=== PATIENT | female | born 1950 | race Caucasian/White ===

== ENCOUNTER 2021-12-22 13:34 | Outpatient (CLI) | payer MEDICARE, BC, SELFPAY ==
--- NOTE | 2021-12-22 14:00 | CRLHL7_ITS ---
For Patients: As a result of the Century Cures Act, medical imaging exams and procedure reports are released immediately into your electronic medical record. You may view this report before your referring provider. If you have questions, please contact your health care provider. BILATERAL SCREENING MAMMOGRAM WITH COMPUTER-AIDED DETECTION AND TOMOSYNTHESIS CLINICAL HISTORY: Screening mammogram. TECHNIQUE: BILATERAL screening mammogram with tomosynthesis. Computer-aided detection was utilized. COMPARISON FILM: Mammograms 12/18/2020. BREAST COMPOSITION: The breasts are heterogeneously dense, which may obscure small masses. FINDINGS: No mass, suspicious microcalcifications or other evidence of malignancy. LEFT BREAST: Focal asymmetry in the slightly outer lower posterior LEFT breast at the approximately 4-5 o???clock position 10 cm from the nipple. No suspicious microcalcifications or architectural distortion. IMPRESSION: Focal asymmetry in the posterior LEFT breast at the approximately 4-5 o???clock position 10 cm from the nipple. RECOMMENDATION: Recommend Spot compression CC, LEFT ML with tomosynthesis and ultrasound for further evaluation. ASSESSMENT: BI-RADS Category 0: Incomplete: Need Additional Imaging Evaluation and/or Prior Mammograms for Comparison [facility] will contact the patient for follow-up. A lay language report of this examination will be provided to the patient. Mike Zneg M.D. Diagnostic/Musculoskeletal Radiologist [email or web address] PT/Dictated by: Mike Zeng MD @ 12/23/2021 10:54:00 AM (Electronically Signed)
== END 2021-12-22 13:35 | disposition home or self-care (01) ==
LOC: MAMMO 13:37
PROVIDERS: PCP Physician Assistant Medical; Visit Provider Physician Assistant Medical
DX: Z12.31 Encounter for screening mammogram for malignant neoplasm of breast (principal); R92.2 Inconclusive mammogram
CPT/HCPCS: 77063; 77067

== ENCOUNTER 2021-12-30 09:27 | Outpatient (CLI) | payer MEDICARE, BC, SELFPAY ==
--- NOTE | 2021-12-30 09:45 | CRLHL7_ITS ---
For Patients: As a result of the Cures Act, medical imaging exams and procedure reports are released immediately into your electronic medical record. You may view this report before your referring provider. If you have questions, please contact your health care provider. LEFT BREAST DIAGNOSTIC MAMMOGRAM WITH COMPUTER-AIDED DETECTION AND TOMOSYNTHESIS LEFT BREAST ULTRASOUND CLINICAL HISTORY: LEFT breast mass/asymmetry. COMPARISON: 12/22/2021, 12/18/2020. TECHNIQUE: Digital LEFT mammogram in 2 projections. Computer-aided detection and tomosynthesis were used. Real-time ultrasound imaging of LEFT breast with imaging documentation. Scanning was performed by both the technologist and the radiologist. BREAST COMPOSITION: There are scattered areas of fibroglandular density FINDINGS: 3D spot-compression CC and 3D true lateral LEFT breast mammograms submitted. Persistent nodular density with irregular margins deep within the LEFT breast at 6 o`clock. Targeted LEFT breast ultrasound performed. At 6 o`clock 10 cm from the nipple there is an irregular hypoechoic nodule measuring 9 x 4 x 6 millimeters. IMPRESSION: Suspicious lesion LEFT breast 6 o`clock 10 cm from the nipple measuring 9 millimeters. RECOMMENDATIONS: Ultrasound-guided core needle biopsy recommended. BI-RADS Category 4: Suspicious Results and recommendations discussed with the patient. Dictated by Lopez Ambrocio MD @ 12/30/2021 11:10:45 AM/josue LISA/Dictated by: Lopez Ambrocio MD @ 12/30/2021 11:10:00 AM (Electronically Signed)
--- NOTE | 2021-12-30 10:15 | CRLHL7_ITS ---
For Patients: As a result of the Century Cures Act, medical imaging exams and procedure reports are released immediately into your electronic medical record. You may view this report before your referring provider. If you have questions, please contact your health care provider. PLEASE SEE LEFT DIAGNOSTIC MAMMOGRAM OF SAME DAY. LISA/Dictated by: Lopez Ambrocio MD @ 12/30/2021 11:10:00 AM (Electronically Signed)
== END 2021-12-30 09:28 | disposition home or self-care (01) ==
LOC: MAMMO 09:30
PROVIDERS: PCP Physician Assistant Medical; Visit Provider Physician Assistant Medical
DX: N63.20 Unspecified lump in the left breast, unspecified quadrant (principal); R92.8 Other abnormal and inconclusive findings on diagnostic imaging of breast
CPT/HCPCS: 76642; 77065; G0279

== ENCOUNTER 2022-01-04 08:28 | Outpatient (CLI) | payer MEDICARE, BC, SELFPAY ==
--- NOTE | 2022-01-04 09:15 | CRLHL7_ITS ---
For Patients: As a result of the Century Cures Act, medical imaging exams and procedure reports are released immediately into your electronic medical record. You may view this report before your referring provider. If you have questions, please contact your health care provider. ULTRASOUND-GUIDED LEFT BREAST BIOPSY AND POST-BIOPSY DIGITAL MAMMOGRAM FOR BIOPSY MARKER PLACEMENT, 01/04/2022 CLINICAL HISTORY: Indeterminate lesion. COMPARISON STUDIES: 12/30/2021. TECHNIQUE: Real-time ultrasound with image documentation was used for targeting the breast lesion. Core biopsy specimens were obtained using an automated gun with a 18-gauge biopsy needle. Post-biopsy CC and ML digital mammograms were obtained to document position of the biopsy marker. CONSENT and TIME OUT: The procedure, risks, and alternatives were explained to the patient and a consent was signed. [place] Protocol was followed including pre-procedure verification that relevant information/documentation was available, reviewed and properly matched to the patient; consent accurate and complete; and equipment and supplies available. Time Out was conducted just prior to starting procedure to verify the four required elements: patient identity, correct side/site marked (if applicable), procedure, relevant images/results properly labeled and displayed (if applicable). PROCEDURE: The patient was positioned supine on the ultrasound table. The breast was prepped with ChloraPrep. 10 cc lidocaine used for local anesthesia. Core samples were obtained. A sterile metal biopsy clip was placed percutaneously to saad the lesion position within the breast. The specimens were placed in 10% formalin and sent to the pathology department. Pressure was held on the biopsy site until all bleeding subsided. The skin incision was closed with Steri-Strips. An ice pack was positioned over the biopsy site. Post-biopsy instructions were reviewed with the patient, and a written copy was given to her. LATERALITY: LEFT breast LESION: Ill-defined hypoechoic lesion measuring 9 x 6 x 6 millimeters at 6 o`clock 10 cm from the nipple. SUSPICION FOR MALIGNANCY: High NUMBER OF SAMPLES: 6 BIOPSY CLIP SHAPE: Coil-shaped PROXIMITY OF CLIP TO TARGET: Within the lesion IMPRESSION: Ultrasound-guided breast biopsy. When the pathology report is available, an addendum to this report will be made. ACR not applicable. Dictated by Lopez Ambrocio MD @ 01/04/2022 9:30:42 AM CRL:brea RD/Dictated by: Lopez Ambrocio MD @ 01/04/2022 9:30:00 AM ----- ADDENDUM ----- Addendum: Pathology consistent with grade 3/3 invasive lobular carcinoma. This is concordant. Appropriate action recommended. Dictated by Lopez Ambrocio MD @ Jan 04 2022 9:30AM Signed by:?Lopez Ambrocio MD @01/04/2022 3:01:50 PM (Electronically Signed)
--- NOTE | 2022-01-04 09:45 | CRLHL7_ITS ---
For Patients: As a result of the Cures Act, medical imaging exams and procedure reports are released immediately into your electronic medical record. You may view this report before your referring provider. If you have questions, please contact your health care provider. PLEASE SEE LEFT ULTRASOUND-GUIDED BIOPSY OF SAME DAY. CRL:rcd RD/Dictated by: Lopez Ambrocio MD @ 01/04/2022 9:38:00 AM (Electronically Signed)
== END 2022-01-04 08:29 | disposition home or self-care (01) ==
LOC: US 08:29
PROVIDERS: PCP Physician Assistant Medical; Visit Provider Physician Assistant Medical
DX: C50.812 Malignant neoplasm of overlapping sites of left female breast (principal); Z17.0 Estrogen receptor positive status [ER+]
CPT/HCPCS: 19083; 77065; 88305; 88341; 88342; 88360; 88361; A4648; A4649

== ENCOUNTER 2022-01-14 07:10 | Outpatient (CLI) | payer MEDICARE, BC, SELFPAY ==
--- NOTE | 2022-01-14 07:15 | CRLHL7_ITS ---
For Patients: As a result of the 21st Century Cures Act, medical imaging exams and procedure reports are released immediately into your electronic medical record. You may view this report before your referring provider. If you have questions, please contact your health care provider. BILATERAL BREAST MRI WITHOUT AND WITH GADOLINIUM CLINICAL HISTORY: Recently diagnosis left breast invasive lobular carcinoma after ultrasound-guided biopsy of a 0.9 cm mass at 6 o`clock, 10 cm from the nipple in the left breast. INDICATION FOR BREAST MRI: Staging of newly diagnosed breast cancer and screening of contralateral breast. Regional lymph nodes will also be assessed. COMPARISON STUDIES: Screening mammograms 12/22/2021, 12/18/2020 and 08/14/2018; diagnostic left mammogram and ultrasound 12/30/2021 and images from ultrasound-guided left breast biopsy and post biopsy mammogram 01/04/2022. CONTRAST: 15 mL Dotarem. TECHNIQUE: The patient was positioned prone using a breast coil. Multiple imaging sequences were obtained using 1-1.5 mm thick slices with no gap. The image sequences include T2-weighted STIR in the axial plane, T1-weighted nonfat-saturated gradient echo in the axial plane, pre- and post-contrast T1-weighted FLASH 3D with fat suppression in the axial plane, and T1-weighted FLASH high resolution 3D with fat suppression in the sagittal plane. Image post-processing was performed on a [employer] workstation. Complex 3D rendering including maximum intensity projections (MIPS) and volumetric renderings were obtained to optimize visualization of the extent of pathology and relationship to the nipple, skin, and chest wall. This aids in determining feasibility of breast conservation surgery. Subtraction, multiplanar reconstruction, mean curve determination, and angiogenesis mapping were also performed. The study was technically adequate. FINDINGS: Amount of Fibroglandular Tissue: Scattered fibroglandular tissue. Breast Background Enhancement: Mild. RIGHT Breast: There is no suspicious mass or enhancement within the breast. LEFT Breast: At 6 o`clock, 10 cm posterior to the nipple 0.7 x 1.4 x 0.9 cm irregular mass with spiculated margins which demonstrates rapid initial and washout delayed phase enhancement. There is susceptibility artifact within the mass from the clip marking the site of biopsy proven malignancy. No abnormal enhancement elsewhere within the breast. Lymph Nodes: No abnormal morphology lymph nodes. Other Findings: There is a 0.7 cm T2 hyperintense, nonenhancing cyst in the right lobe of the liver. IMPRESSIONS AND RECOMMENDATIONS: 1. The biopsy-proven malignancy at 6 o`clock in the left breast measures up to 1.4 cm on MRI. Continued surgical/oncologic management is recommended. 2. No MRI evidence of malignancy in the right breast. 3. No abnormal morphology lymph nodes. BI-RADS Category 6: Known, biopsy-proven malignancy. Dictated by Rafaela Dc MD @ 01/17/2022 3:41:38 PM (Electronically Signed)
== END 2022-01-14 07:11 | disposition home or self-care (01) ==
LOC: MRI 07:11
PROVIDERS: PCP Physician Assistant Medical; Visit Provider Surgery
DX: C50.812 Malignant neoplasm of overlapping sites of left female breast (principal); Z17.0 Estrogen receptor positive status [ER+]
CPT/HCPCS: 77049; A9575

== ENCOUNTER 2022-01-26 09:18 | Outpatient (CLI) | payer MEDICARE, BC, SELFPAY ==
[2022-01-26 12:38] LABS: Chloride* 105 mmol/L (96-114)
[2022-01-26 12:39] LABS: Albumin* 4.7 g/dL (3.3-5.0); Potassium* 4.6 mmol/L (3.6-5.1); Sodium* 141 mmol/L (135-149)
[2022-01-26 12:41] LABS: Bilirubin Total* 1.1 mg/dL (0.1-1.5); Carbon Dioxide* 27 mmol/L (20-32); Cholesterol* 203 mg/dL (90-199); Creatinine* 1.3 mg/dL (0.5-1.5); Estimated Glomerular Filt Rate 43 ml/min
[2022-01-26 12:42] LABS: Alanine Aminotransferase* 39 U/L (4-35); Alkaline Phosphatase* 101 U/L (40-150); Aspartate Amino Transferase* 52 U/L (12-35); Blood Urea Nitrogen* 21 mg/dL (7-30); Calcium* 10.3 mg/dL (8.4-10.6); Glucose* 103 mg/dL (60-115); Total Protein* 7.7 g/dL (6.0-8.3); Triglycerides* 184 mg/dL (40-149)
[2022-01-26 12:43] LABS: HDL Cholesterol* 67 mg/dL (>=50); LDL Cholesterol Calculated 99 mg/dL (<100)
== END 2022-01-26 09:19 | disposition home or self-care (01) ==
PROVIDERS: PCP Physician Assistant Medical; Visit Provider Physician Assistant Medical
DX: Z00.00 Encounter for general adult medical examination without abnormal findings (principal); E78.5 Hyperlipidemia, unspecified; I10 Essential (primary) hypertension; R79.89 Other specified abnormal findings of blood chemistry; Z01.810 Encounter for preprocedural cardiovascular examination; C50.919 Malignant neoplasm of unspecified site of unspecified female breast
CPT/HCPCS: 80053; 80061

== ENCOUNTER 2022-01-27 06:31 | Day surgery (SDC) | payer MEDICARE, BC, SELFPAY ==
[2022-01-27] VITALS (9 sets, daily range): BP systolic 119–144; BP diastolic 70–89; PULSE 65–77; RESP 12–20; TEMP 35.5–36.6; O2SAT 91–95; BMI 28.0
[2022-01-27] MEDS: LACTATED RINGERS 1000 ML 1,000 ML 100 ML IV (07:30)
[2022-01-27] MEDS: SODIUM CHLORIDE 0.9 % (FLUSH) 10 ML SYRINGE IVF (07:32)
--- NOTE | 2022-01-27 08:00 | CRLHL7_ITS ---
For Patients: As a result of the Century Cures Act, medical imaging exams and procedure reports are released immediately into your electronic medical record. You may view this report before your referring provider. If you have questions, please contact your health care provider. INDICATION: Left-sided breast cancer. TECHNIQUE: 1.09 millicuries of technetium-99m labeled filtered sulfur colloid has been placed in the deep dermis of the left breast. FINDINGS: After sterile technique an injection of the radiotracer has been placed in the deep dermis of the left breast. No images have been obtained. IMPRESSION: Successful sentinel lymph node localization injection left breast. Dictated by Oracio Jamison MD @ 01/27/2022 9:42:08 AM (Electronically Signed)
--- NOTE | 2022-01-27 08:15 | CRLHL7_ITS ---
For Patients: As a result of the Century Cures Act, medical imaging exams and procedure reports are released immediately into your electronic medical record. You may view this report before your referring provider. If you have questions, please contact your health care provider. ULTRASOUND-GUIDED LEFT BREAST WIRE LOCALIZATION WITH POST-LOCALIZATION MAMMOGRAM FOR WIRE PLACEMENT CLINICAL HISTORY: LEFT breast mass. COMPARISON: Ultrasound 01/04/2022. LATERALITY: LEFT. LESION: LEFT breast 6 o`clock 10 cm from the nipple mass measuring 0.7. LOCALIZATION WIRE: Bard Ghiatas Beaded wire. TECHNIQUE: The localization wire was placed using real-time ultrasound guidance with image documentation. Cranial-caudal and medial-lateral digital mammograms were obtained after localization wire placement. CONSENT and TIME OUT: The procedure, risks, and alternatives were explained to the patient and a consent was signed. [place] Protocol was followed including pre-procedure verification that relevant information/documentation was available, reviewed and properly matched to the patient; consent accurate and complete; and equipment and supplies available. Time Out was conducted just prior to starting procedure to verify the four required elements: patient identity, correct side/site marked (if applicable), procedure, relevant images/results properly labeled and displayed (if applicable). PROCEDURE: The skin was prepped with Betadine or ChloraPrep and 5 cc of 1% lidocaine was injected for local anesthesia. The localization wire was placed within or near the targeted breast lesion using ultrasound guidance. The patient tolerated the procedure well. PROXIMITY OF WIRE TO LESION: Wire was placed through the mass and adjacent to the clip. IMPRESSION: Successful breast wire localization. ACR not applicable Tory Wilcox M.D. Diagnostic/Breast Radiologist [email or web address] PEDRITO/sana hood/Dictated by: Tory Wilcox MD @ 01/27/2022 11:19:00 AM (Electronically Signed)
--- NOTE | 2022-01-27 08:45 | CRLHL7_ITS ---
For Patients: As a result of the Cures Act, medical imaging exams and procedure reports are released immediately into your electronic medical record. You may view this report before your referring provider. If you have questions, please contact your health care provider. PLEASE SEE ULTRASOUND-GUIDED LEFT WIRE LOCALIZATION DONE SAME DAY CRL:sana hood/Dictated by: Tory Wilcox MD @ 01/27/2022 11:19:00 AM (Electronically Signed)
[2022-01-27] MEDS: ISOSULFAN BLUE 5 ML VIAL INJECTION (09:29)
[2022-01-27] MEDS: CEFAZOLIN 1 GM inj IVP (09:30)
--- NOTE | 2022-01-27 09:52 | SUR.OPER ---
Patient transfered from [facility] to OR1. Patient was assisted to the OR table and covered with warm blankets x 2.
[2022-01-27] MEDS: BUPIVACAINE 0.25% 30 ML INJECTION (09:55)
--- NOTE | 2022-01-27 10:14 | SUR.OPER ---
Left breast mass removed at 1004. Delivered to Mammo Radiology at 1011.
--- NOTE | 2022-01-27 10:20 | CRLHL7_ITS ---
For Patients: As a result of the Cures Act, medical imaging exams and procedure reports are released immediately into your electronic medical record. You may view this report before your referring provider. If you have questions, please contact your health care provider. LEFT BREAST SPECIMEN RADIOGRAPH CLINICAL HISTORY: LEFT breast mass. FINDINGS/IMPRESSION: The specimen sample demonstrates the wire, mass and the clip. ACR not applicable Tory Wilcox M.D. Diagnostic/Breast Radiologist [email or web address] JERRYP/sana hood/Dictated by: Tory Wilcox MD @ 01/27/2022 11:36:00 AM (Electronically Signed)
--- NOTE | 2022-01-27 11:18 | PM.GSPRC ---
Operative Note Date of procedure: 01/27/22 Type of Procedure: 1. Lumpectomy, left breast 2. Merigold lymph node biopsy, left axilla Procedure Description: Prior to arrival in the operating room, the patient was taken to radiology where a wire was placed to localize the previously placed clip. I injected a radial colloid while in preop prior to the procedure. The patient was then brought to the operating room where anesthesia was induced. I injected 2 ml of lymphazurin blue and performed breast massage for a period of 5 minutes. The left breast and axilla were prepped and draped in the usual sterile fashion. Timeout was confirmed. Local anesthesia was infiltrated into a transverse incision in the lower outer portion of the left breast and adjacent to the wire. Using electrocautery, the segment of breast tissue containing the tip of the wire was excised. This was sent for evaluation. Radiology called back and confirmed that the clip and wire were present within the specimen. Pathology then called back and confirmed that the margins were appropriate. We then elected to perform the sentinel node aspect of the procedure. Using the neoprobe, the area of maximal counts was identified. Local anesthesia was infiltrated into the skin and an incision was made. This was carried down to the subcutaneous tissue using electrocautery. Using a combination of blunt dissection and electrocautery, a hot and blue node was resected. Adjacent blue faheem tissue was also identified and removed as a separate specimen. No additional nodes were resected. Care was taken to clip all lymphatic channels.. These specimen were sent to pathology for permanent evaluation. The wounds were irrigated and all irrigant suctioned from the wound. Additional local anesthesia was infiltrated. The wounds were then closed in layers using absorbable suture, and Dermbond was placed over the wounds. The patient was awakened without incident and taken to PACU in stable condition. Sponge, needle and instrument counts were correct x3 at the termination of the case. Findings: Merigold node biopsy was performed using Isosulfan blue dye and radiotracer; all identified blue and significantly radioactive nodes as well as any additional suspicious nodes were removed. Left breast lumpectomy with negative margins. Anesthesia: MAC and local Surgeon: Steffany Solomon MD Estimated blood loss (mL): 10 Condition: stable Disposition: same day
--- NOTE | 2022-01-27 11:35 | W.ANESCHARGE ---
Anesthesia Charges Start Date/Time Anesthesia Start Date: 01/27/22 Anesthesia Start Time: 09:22 Stop Date/Time Anesthesia Stop Date: 01/27/22 Anesthesia Stop Time: 11:30 Summary Emergency: No Extremes of Age: Over 68-CPT [id number]
--- NOTE | 2022-01-27 12:06 | W.ANESCHARGE ---
Anesthesia Charges Start Date/Time Anesthesia Start Date: 01/27/22 Anesthesia Start Time: 09:22 Stop Date/Time Anesthesia Stop Date: 01/27/22 Anesthesia Stop Time: 11:30 Summary Emergency: No
[2022-01-27] MEDS: OXYCODONE 5 MG TABLET PO (13:01)
== END 2022-01-27 13:42 | disposition home or self-care (01) ==
PROVIDERS: PCP Physician Assistant Medical; Visit Provider Surgery
PROC: (CPT 19301; principal; 2022-01-27 09:30)
DX: C50.812 Malignant neoplasm of overlapping sites of left female breast (principal); Z17.0 Estrogen receptor positive status [ER+]
CPT/HCPCS: 19301; 38500; 00400; 19285; 38792; 77065; 88305; 88307; 99100; A9270; A9541; C1769; G0279; J0690; J2250; J2370; J2405; J2704; J3010; J3490; J7120

== ENCOUNTER 2022-02-23 13:36 | Outpatient (CLI) | payer MEDICARE, BC, SELFPAY ==
[2022-02-23 13:39] LABS: Albumin* 4.2 g/dL (3.3-5.0); Chloride* 108 mmol/L (96-114); Potassium* 4.3 mmol/L (3.6-5.1); Sodium* 142 mmol/L (135-149)
[2022-02-23 13:41] LABS: Carbon Dioxide* 25 mmol/L (20-32); Creatinine* 1.2 mg/dL (0.5-1.5); Estimated Glomerular Filt Rate 48 ml/min
[2022-02-23 13:42] LABS: Blood Urea Nitrogen* 24 mg/dL (7-30); Calcium* 9.3 mg/dL (8.4-10.6); Glucose* 91 mg/dL (60-115); Phosphorus* 3.9 mg/dL (2.5-4.5); Uric Acid* 6.4 mg/dL (2.2-8.4)
[2022-02-23 14:22] LABS: Creatinine Urine 104.9 mg/dL
[2022-02-23 14:25] LABS: Microalbumin Creatinine Ratio 20 mg/g (0-30); Microalbumin Urine 3 mg/dL
== END 2022-02-23 13:37 | disposition home or self-care (01) ==
PROVIDERS: PCP Physician Assistant Medical; Visit Provider Internal Medicine Nephrology
DX: I10 Essential (primary) hypertension (principal); N18.30 Chronic kidney disease, stage 3 unspecified
CPT/HCPCS: 80069; 82043; 82570; 84550

== ENCOUNTER 2022-12-28 13:42 | Outpatient (CLI) | payer MEDICARE, BC, SELFPAY ==
--- NOTE | 2022-12-28 14:00 | CRLHL7_ITS ---
For Patients: As a result of the Century Cures Act, medical imaging exams and procedure reports are released immediately into your electronic medical record. You may view this report before your referring provider. If you have questions, please contact your health care provider. BILATERAL SCREENING MAMMOGRAM WITH COMPUTER-AIDED DETECTION AND TOMOSYNTHESIS TECHNIQUE: CC and MLO views were obtained. These mammographic images have been obtained using full-field digital technique. These mammographic images were interpreted with the benefit of computer-aided detection. Breast Tomosynthesis was used in this interpretation. COMPARISON FILM: 12/22/21, 12/18/20, 08/14/18. FINDINGS: There are scattered areas of fibroglandular density IMPRESSION: There is no radiographic evidence for malignancy. ASSESSMENT: BI-RADS Category 2: Benign RECOMMENDATION: Routine screening mammogram in 1 year. A lay language report of this examination will be provided to the patient. Lopez Ambrocio M.D. Diagnostic Radiologist [email or web address] LISA/Dictated by: Lopez Ambrocio MD @ 12/29/2022 8:31:00 AM (Electronically Signed)
--- NOTE | 2022-12-28 14:30 | CRLHL7_ITS ---
For Patients: As a result of the Century Cures Act, medical imaging exams and procedure reports are released immediately into your electronic medical record. You may view this report before your referring provider. If you have questions, please contact your health care provider. DXA BONE MINERAL DENSITY STUDY Current height (in): 64.0. Weight (lb): 155.0. Menopause age: 50. Ethnicity: White. Reason for exam: Osteopenia. 1. Have you had a previous hip or vertebral fracture? No. 2. Have you had any fractures during your adult life which did not result from significant trauma (e.g., auto accident)? No. 3. Did either of your parents have a hip fracture? No. 4. Do you smoke? No. 5. Have you ever taken Glucocorticoids? No. 6. Do you have rheumatoid arthritis? No. 7. Do you have secondary osteoporosis? No. 8. Do you drink 3 or more alcoholic drinks per day? No. 9. Are you being treated for osteoporosis? No. 10. Have you ever taken any of the following medications: Actonel, Evista, Fosamax, Miacalcin, Reclast, Boniva, Forteo, HRT (i.e. estrogen/hormone therapy), Protelos, Prolia, Vitamin D, Calcium, other ??? please specify. ANSWER: Yes, vitamin D, calcium. 11. Do you have any of the following medical conditions: Anorexia or bulimia, asthma or emphysema, end stage renal disease, hyperparathyroidism, any seizure disorders, cancer, inflammatory bowel diseases, hysterectomy, other ??? please specify. ANSWER: Yes, cancer, hysterectomy. 12. What was your maximum height (inches)? 64. 13. Do you perform weight bearing exercise regularly? No. 14. Do you regularly consume dairy products? Yes. 15. Do you drink caffeinated beverages? No. 16. At what age did your period start? 11. 17. Are you premenopausal? No. 18. How many full-term pregnancies have you had? 0. 19. Have you ever missed your period for more than 6 months in a row (not including or menopause)? No. TECHNIQUE: Bone mineral density study was performed using the INPHI. FINDINGS: The results of the study expressed as bone mineral density (BMD) are as follows: Lumbar spine L1 to L4: BMD: 1.261 g/cm2. T-score: 1.9. Z-score: 4.3. Neck Left: BMD: 0.684 g/cm2. T-score: -1.5. Z-score: 0.6. Right: BMD: 0.724 g/cm2. T-score: -1.1. Z-score: 0.9. Total Left: BMD: 0.926 g/cm2. T-score: -0.1. Z-score: 1.6. Right: BMD: 0.964 g/cm2. T-score: 0.2. Z-score: 1.9. IMPRESSION: Osteopenia. *Comparison exams done prior to 09/2019 were performed on different unit, [facility]. COMPARISON: Compared with scan of 12/16/2020, the bone mineral density has increased by 3.4 percent at the spine and increased by 7.9 percent at the hip. FRAX 10-year Fracture Risk Major Osteoporotic Fracture: 11 percent Hip Fracture: 2.2 percent Reported Risk Factors: [place] () Neck BMD = 0.684, BMI = 26.6 Lopez Ambrocio M.D. Diagnostic Radiologist [email or web address] Transcribed: 10:49 am DW/Dictated by: Lopez Ambrocio MD @ 12/29/2022 9:15:00 AM (Electronically Signed)
== END 2022-12-28 13:43 | disposition home or self-care (01) ==
LOC: MAMMO 13:43
PROVIDERS: PCP Physician Assistant Medical; Visit Provider Physician Assistant Medical
DX: Z12.31 Encounter for screening mammogram for malignant neoplasm of breast (principal); Z79.811 Long term (current) use of aromatase inhibitors; M85.88 Other specified disorders of bone density and structure, other site
CPT/HCPCS: 77063; 77067; 77080

== ENCOUNTER 2023-01-05 13:00 | Outpatient (RCR) | payer MEDICARE, BC, SELFPAY | END 2023-02-25 23:59 | disposition home or self-care (01) | LOC: CCIC 13:00 | PROVIDERS: PCP Physician Assistant Medical; Visit Provider Physician Assistant | DX: C50.912 Malignant neoplasm of unspecified site of left female breast (principal); Z17.0 Estrogen receptor positive status [ER+]; M85.80 Other specified disorders of bone density and structure, unspecified site; M79.10 Myalgia, unspecified site; L73.9 Follicular disorder, unspecified; Z79.810 Long term (current) use of selective estrogen receptor modulators (SERMs) | CPT/HCPCS: 99212; 99214; 99215 ==

== ENCOUNTER 2023-01-25 10:15 | Outpatient (RCR) | payer MEDICARE, BC, SELFPAY ==
--- NOTE | 2022-02-08 18:09 | PT.OPE ---
PT [employer] Outpatient Eval PT [facility] Outpatient Eval Start: 02/08/22 17:28 Freq: Status: Active Protocol: Document 02/08/22 18:02 BMS (Rec: 02/08/22 18:09 BMS [email or web address]) E-signed By Jemima Moreno PT Physical Therapy Outpatient Evaluation Insurance Information Recert Due Date 05/07/22 Insurance Name Medicare B Medical Diagnosis breast cancer left breast lumpectomy w LND 01/27 Treating Diagnosis shoulder stiffness M25.61 scar fibrosis of skin L90.[address] Solomon Subjective Subjective not even sure why I am here - but they told me to come. it all happened so fast. had mammogram, they found something, had an ultrasound, MRI and biopsy. 01/27/22 had lumpectomy and they took 1 lymph node and it was clear. Live alone, didnt know I needed a different bra and couldnt wrap myself after surgery so wearing regular bra (not underwire) they said that was ok. see surgeon next week and oncologist the week after that. Dont know if will have to do radiation or some other kind of pill maybe for 5 years, but said I probably wouldnt have to have chemo. Am right handed so thankful for that. feels tight and has been shooting pains in breast scar last few days. putting a dolls blanket in my armpit bc that scar is getting irritated . patient reports stiffness in shoulder, some swlling around incisional areas, 1 lymph node removed (-), reports bruised feeling into forearm last few days adn fullness in armpit. Pain Comments sharp shooting pains intermittently randomly last few days Date of Next Physician Visit 02/16/22 Current Work Status Retired Preferred Name Tori Precautions Treatment Precautions/Contraindications breast cancer - lumpectomy 01/27/22 Therapy Limitations/Systems Review Other Medical Problem Objective Range of Motion shoulder flex 170 abduct WNL ER 70 IR T12 cervical ROM WNL Swelling not able to measure Palpation decreased tissue mobility through incisions inferior/ lower L breast and also axilla . poss seroma in axialla and edema in inferolateral breast and left chest wall. firm endfeel, GH mobility feels apporpriate in P/A and A/P testing Balance & Gait dec UE swing on L Posture head forward, mild rounding of shoulders and shoulders forward. able to manage scap motion Other/Pertinent Objective see text obj Functional Test Performed & Score quick dash =12 Assessment Assessment/Impression Patient is very pleasant 71 y. o female a little overwhelmed by her recent circumstances of dx and surgery for breast cancer. Per EMR and patient report, abnormal area identified on mammogram in left lateral LEFT breast (non- dominant) . biopsy indicated ' invasive lobular carcinoma grade 3 of 3 ER positive/VA postiive/HER2 negative. Had MRI B negative for other lesions or abnormal lymph nodes. Pathology report: Left breast 6:00 10 cm from nipple, angiolymphatic invasion absent. Lumpectomy and SLNB performed 01/27/22. She presents today with slight limitation in L shoulder flexion and abduction (normal IR and ER as well as cervical motion), fullness in breast/ lateral chest, and axilla poss seroma, limited scar tissue mobility, peeling of scab vs glue in axilla as well as reports of tightness into flexor forearm. Patient lives alone and performs her own cares, back to her normal daily activities except observing 10# lifting restriction. She demo good technique with home program and will return in 2 weeks at 4 week point to advance ex as tolerated and further work through tissue. Patient verbalizes understanding and was given contact info for therapist should questions arise. Due to referral to rehab so soon before surgery was not seen for pre-op so much instruction and initial home program given this date. i Primary Functional Limitations reach, lift, carry Plan of Care Physical Therapy Goals 1. Restore shoulder AROM, as measured at pre-operative evaluation, after initial recovery period to improve 1 and 2-handed functional activity ability. (This will reduce during radiation therapy inflammatory phase, if needed.) 2. Restore functional to baseline for continued ability to perform own self cares and home management as she lives alone. 3. Restore full upright posture per patient perception or compared to pre-operative findings. Coordination/Communication With Referral Source Treatment Plan/Direct Interventions Heat,Joint Mobilization,Manual Therapy,Neuromuscular Re-ed, Self-Care/Home Management, Therapeutic Activities, Therapeutic Exercises Patient Will Be Discharged From Therapy Completion of LTG(s),Skills Plateau,Independent w/HEP, Independently Progressing Evaluation Billing Untimed Code Treatment Minutes 25 Complexity Moderate Certification Information Initial Certification Date 02/08/22 Ending Certification Date 05/08/22 Provider Signature Shows Agreement With POC & Medical Necessity Physician Signature & Date Requested Please Sign/Date Here Physician Comment/Change : Physician NPI Number #
--- NOTE | 2022-03-03 13:00 | OT.OPLE ---
OT Outpatient Lymphedema Eval OT Outpatient Lymphedema Eval Start: 03/03/22 12:28 Freq: Status: Active Protocol: Document 03/03/22 12:39 AMB (Rec: 03/03/22 12:59 AMB [id number]) E-signed By Parisa Cobb, OTR/L, CLT, AIR TRAFFIC CONTROL EQUIPMENT REPAIRER OT Outpatient Evaluation Details Type Type Eval Complexity Low OT OP Lymphedema Evaluation Insurance Information Insurance Information Medicare B Current Condition/Medical Diagnosis Referring Provider Dr Solomon Treatment Diagnosis Lymphedema Date Of Onset 01/27/22 Other Contraindications See Medical Hx Current Work Status Current Work Status Retired Subjective Subjective Pt states she is feeling pretty good following her 04/14 lumpectomy with SLN biopsy x 1. Pt states she has a little soreness and some puffiness which she expected. She does however, have some cording in her forearm which has been somewhat uncomfortable. Pt states she really has not heard of lymphedema and is curious to learn more. Medical History Medical History Cancer Treatment/Surgery Medical History Comments Taken from Oncology records: Oncology Hx: 1. Presented for annual screening mammogram 2. Abnormal finding with seen in the left lateral aspect of the breast. Core biopsy performed, revealed invasive lobular carcinoma, grade 3 of 3, ERPR positive and HER2 negative. 3. MRI of bilateral breasts completed, negative for any other concerning lesions or abnormal lymph nodes. 4. Consultation with General surgery surrounding treatment for her newly diagnosed breast cancer. 5. On 01/27/2022, patient proceeded with a left breast lumpectomy, with sentinel lymph node biopsy. 6. Final pathology, invasive lobular carcinoma, 6 mm in size, grade 3 of 3. ERPR strongly positive, HER2 negative, Ki-67 24% and no lymph node involvement. Final pathological stage, stage IA, pT1b, pN0 Medical History (Updated 02/24 @ 12:17 by Viktoriya Arias NP-C) History of central retinal artery occlusion History of colonic polyps (10/08) History of uterine leiomyoma Surgical History (Updated 09/12 @ 09:36 by Kendell Mccauley PA-C) History of cataract extraction (08/2012) History of colonoscopy History of laparoscopy- assisted vaginal hysterectomy (09/2004) History of tubal ligation Mass of tongue Surgical History Surgical History See above Medications Medications acetaminophen (Tylenol) 325 mg PO ONCE PRN amlodipine 5 mg PO QDAY atorvastatin 20 mg PO .hs calcium-vitamin D3-vitamin K 650 mg-12.5 mcg-40 mcg ( Viactiv) 2 tabs PO DAILY carvedilol 12.5 mg PO BID losartan 100 mg PO QDAY Family History Family History of Lymphedema No Living Situation Current Living Situation Private Home/Apartment (Alone) Patient Difficulties Patient Difficulties Comments None Exercise History Does Patient Exercise Regularly Yes Exercise Comments Pt goes to the [facility] almost daily, was doing zoomba prior to her surgery, plans on returning to it once she is able. Pain Pain Yes Pain Comments Mild discomfort in her forearm from cording. Loss of Function/Strength/Mobility Loss Of Function/Strength/Mobility No Compression History Does Patient Currently Wear Compression No During Daytime Does Patient Currently Wear Compression No At Night Current Swelling (Location/Pitting/Texture) Pitting Scale: 0 = No pitting 1+ Tissue returns to normal almost immediately 2+ Tissue returns after 15-30 seconds 3+ Tissue returns after 1-1/2 minutes 4+ Tissue returns after 2-3 minutes N/A Tissue no longer pits due to induration Tissue texture: Soft or indurated Swelling Comments Pt currently does not present with any concerns for lymphedema. She does have some post op swelling in the axilla and inferior breast near her surgical incisions, mild swelling is appreciated at the left proximal trunk as well but is likely post-op swelling. Staging Positive Stemmer's Sign No Circumferential Measurements Upper Extremity Left Upper Extremity MCP 19.0 Palm 20.0 Wrist 16.5 10cm 19.5 20cm 24.4 30cm 26.7 40cm 30.8 Total 156.9 Right Upper Extremity MCP 20 Palm 20.5 Wrist 16.5 10cm 19.0 20cm 24.4 30cm 25.5 40cm 30.3 Total 156.2 Assessment Assessment Pt presents post-operatively for initiation of lymphedema surveillance program. Following her mastectomy with SLN biopsy (1), pt will be at risk for lymphedema in her LUE / upper quadrant due to LN removal. Pt may need radiation which would add to her risk. Pt will benefit from skilled OT intervention for pt education, monitoring / surveillance in order to provide early detection / intervention to assure best positive outcomes with fewer lymphedema related complications if the need arises. Pt demonstrates good interest and motivation to be an active participant in her care. Pt asked multiple pertinent questions and received satisfactory answers. Pt was given contact info and encouraged to reach out if more questions arise. Pt does have a regular exercise routine and likes to keep active, lives a healthy lifestyle and acknowledges the value in regular medical visits Problem List Problem List Limited Knowledge of Lymphedema Treatment/Condition /Precautions,Does Not Have a HEP Patient Goals Patient Goals 1. Pt will demonstrate a general understanding of the lymphatic system, s/s of lymphedema, treatment of lymphedema, implications of untreated lymphedema, s/s of infection and the correlation of infection related to lymphedema. 3 months 2. Pt will be compliant with quarterly assessments for lymphedema surveillance in order to obtain early intervention with best outcomes if needed. 12 months Treatment Plan Treatment Plan Evaluation,Edema Control, Manual Therapy,Therapeutic Exercise,Therapeutic Activities Expected Frequency 1x q 3 mo Expected Duration 12 mo Certification Certification I Certify That: Therapy Services Provided, Therapy Plan Established, Therapy Plan Reviewed Recertification Information Recertification Information Initial Certification Date 03/03/22 Recertification Due Date 06/01/22 Reasons to Continue Skilled Therapy Initiating lymphedema surveillance program Rehabilitation Potential Good Provider Signature Shows Agreement With POC & Medical Necessity Physician Comment/Change Comment or Changes Physician NPI Number #
--- NOTE | 2022-05-09 16:46 | ONC.NURNOTE ---
Received call from pt wanting to discuss plan to switch to Tamoxifen after having discontinued Anastrazole d/t unmanageable fatigue. She wonders the risk/benefit of Tamoxifen/Endocrine Therapy for her and feels she went into 05/06 appt expecting to no longer need Endocrine Tx since she did not tolerate it initially. Reviewed Palak Gomez'mai's note with pt, which details risk/benefit and Oncotype in regards to recommendation for Endocrine Tx. Also reinforced how it is common to feel well on one type of Endocrine Tx and have side effects with another. Pt says the last straw was when she picked up her Tamoxifen, the cost is $45/month, which is a financial burden for her. She says she can make it work if she has to but it contributes to her reluctance to proceed with Endocrine Tx. Pt notes she is going to call her insurance company tomorrow to discuss if this drug can be covered better. Encouraged pt to try Tamoxifen for 30 days as she has picked up the prescription, but reinforced her autonomy to take as much time as she needs to process her decision and that we will respect her wishes. She would like to take a few more days to think about it and will call [facility].
--- NOTE | 2022-06-10 13:05 | ONC.NURNOTE ---
Call from patient with an update on her condition. Patient switched the time that she takes her Tamoxifen to 11 AM to see if it improves her side effects, mainly fatigue. She states that of the three different times she has tried (morning, bedtime and mid day), this is the best of the three but she continues to report sleeping 10 hours per night and waking up feeling tired. She feels like she has to force herself to get to the gym, run errands, etc. Patient has follow up scheduled with Palak GomezMonson on 06/23. She will run out of pills a few days before this appointment. She wants to wait to re-fill until she can discuss her options with Palak.
--- NOTE | 2022-08-18 10:49 | OT.OPLDN ---
OT Outpatient Lymphedema Daily Note OT Outpatient Lymphedema Daily Note Start: 03/03/22 12:28 Freq: Status: Active Protocol: Document 08/18/22 10:37 AMB (Rec: 08/18/22 10:46 AMB [id number]) E-signed By Parisa Cobb, OTR/L, CLT, CARE TRANSITION MGR OT OP Lymphedema Daily/Progress Note Note Type Note Type Daily,Recert/Progress Note Visit Number 3 Insurance Information Insurance Information Medicare B Current Condition/Medical Diagnosis Referring Provider Dr Solomon Treatment Diagnosis Lymphedema Date Of Onset 01/27/22 Other Contraindications See Medical Hx Subjective Subjective Pt returns for lymphedema surveillance. Pt denies any swelling but is having generalized pain in both of her arms. States she was not able to tolerate the Anastrazole and they changed her med to Exemestane, she is wondering if this is the cause of her arm pain as it is listed as one of the side affects of the drug. Pt states both of her arms hurt and actually the right hurts more than the left, makes it difficult to raise her arms. Pt states also that she has lost about 7-10# after undergoing a tongue resection on 07/06/22 due to having some pre-cancerous cells. Pt states the recovery from the tongue surgery has been really tough, lots of pain and difficult to eat. Home Program Compliant To Home Program Yes Home Program Specifics Self monitoring. Circumferential Measurements Upper Extremity Left Upper Extremity MCP 20.0 Palm 19.8 Wrist 15.8 10cm 19.3 20cm 24.0 30cm 25.5 40cm 30.3 Total 154.7 Right Upper Extremity MCP 20.0 Palm 20.5 Wrist 16.0 10cm 19.5 20cm 23.5 30cm 25.2 40cm 29.8 Total 154.5 Treatment Self Care Provided review of patient education regarding the lymphatic system, s/s of lymphedema, treatment options for lymphedema, implications of untreated lymphedema, infection and it's correlation to lymphedema as well as implications of untreated infection. Discussed risk reduction practices including skin care and monitoring strategies. Reminded pt of the importance of sun screen with the upcoming summer as well as monitoring bug bites and scrape for infection, etc. Self Care Activity Minutes (minutes) 23 Assessment Pt presents for continuation of lymphedema surveillance program. Following her mastectomy with SLN biopsy (1), pt will be at risk for lymphedema in her LUE / upper quadrant due to LN removal. Current measurements were compared to initial measurements and do not pose concern for lymphedema. Measurements have actually decreased, likely due to her weight loss following tongue surgery. Pt will benefit from continued skilled OT intervention for pt education, monitoring / surveillance in order to provide early detection / intervention to assure best positive outcomes with fewer lymphedema related complications if the need arises. Pt demonstrates good interest and motivation to be an active participant in her care. Pt asked multiple pertinent questions and received satisfactory answers. Pt has typewriter repairer's contact info and encouraged to reach out if questions or concerns arise. Problem List Limited Knowledge of Lymphedema Treatment/Condition /Precautions,Does Not Have a HEP Patient Goals Patient Goals 1. Pt will demonstrate a general understanding of the lymphatic system, s/s of lymphedema, treatment of lymphedema, implications of untreated lymphedema, s/s of infection and the correlation of infection related to lymphedema. 3 months 2. Pt will be compliant with quarterly assessments for lymphedema surveillance in order to obtain early intervention with best outcomes if needed. 12 months Treatment Plan Treatment Plan Evaluation,Edema Control, Manual Therapy,Therapeutic Exercise,Therapeutic Activities Expected Frequency 1x q 3 mo Expected Duration 12 mo Treatment Minutes Timed Treatment Minutes 23 Total Timed Treatment Minutes 23 Occupational Therapy Billing Units Billing Units Self Care/Home Management 1 Certification Certification I Certify That: Therapy Services Provided, Therapy Plan Established, Therapy Plan Reviewed Recertification Information Recertification Information Initial Certification Date 03/03/22 Recertification Start Date 06/01/22 Recertification Due Date 11/16/22 Reasons to Continue Skilled Therapy Pt is participating in a lymphedema surveillance program and will benefit from continued surveillance through 12 months post op to provide early intervention and treatment in the event that she develops lymphedema in order to achieve best outcomes as well as continued pt education on risk reduction practices. Rehabilitation Potential Good Provider Signature Shows Agreement With POC & Medical Necessity Physician Comment/Change Comment or Changes Physician NPI Number #
--- NOTE | 2022-11-15 13:12 | OT.OPLDN ---
OT Outpatient Lymphedema Daily Note OT Outpatient Lymphedema Daily Note Start: 03/03/22 12:28 Freq: Status: Active Protocol: Document 11/15/22 09:57 AMB (Rec: 11/15/22 13:12 AMB [id number]) E-signed By Parisa Cobb, OTR/L, CLT, EVENTS TRAFFIC CONTROLLER OT OP Lymphedema Daily/Progress Note Note Type Note Type Daily,Recert/Progress Note Visit Number 4 Insurance Information Insurance Information Medicare B Current Condition/Medical Diagnosis Referring Provider Dr Solomon Treatment Diagnosis Lymphedema, L breast CA with lumpectomy and ALND Date Of Onset 01/27/22 Other Contraindications See Medical Hx Subjective Subjective Pt doing ok does not have concerns for lymphedema but is concerned about a lump that is present in the upper, medial part of her right arm, it measures 4cm x 2.3cm, it is soft, does not appear to be attached and is not painful, pt states she showed her oncologist who was not concerned but she feels she would like it checked out, recommended pt talk to her PCP , pt agreeable. Pt also has concerns about weakness in her hands, was very surprised how weak she has gotten, I wasn' t even able to get the cover off of my tire to put air in it and I've always been stronger than average. Anastrazole has been discontinued due to joint pain , now back on smaller doses Tomoxafin which seems to be making her tired and she does not want to be tired all the time so she is planning on discussing this with her oncologist, hoping there is something else she can take. Home Program Compliant To Home Program Yes Home Program Specifics Self monitoring. Circumferential Measurements Upper Extremity Left Upper Extremity MCP 19.8 Palm 19.7 Wrist 15.8 10cm 19.3 20cm 24.0 30cm 25.0 40cm 30.3 Total 153.9 Right Upper Extremity MCP 20.0 Palm 20.1 Wrist 16.1 10cm 19.2 20cm 23.4 30cm 25.3 40cm 29.8 Total 153.9 Treatment Self Care Provided review of patient education regarding the lymphatic system, s/s of lymphedema, treatment options for lymphedema, implications of untreated lymphedema, infection and it's correlation to lymphedema as well as implications of untreated infection. Discussed risk reduction practices including skin care and monitoring strategies. Reminded pt of the importance of sun screen with the upcoming summer as well as monitoring bug bites and scrape for infection, etc. Self Care Activity Minutes (minutes) 20 Therapeutic Exercise Provided pt with microstrategy architect developer and pinch strengthening with pink putty today. Issued written instructions and putty for home use. Pt completed 10 reps of each exercise in the clinic, minimal cues needed after demonstration. Pt will benefit from hand strengthening in order to improve independence in ADL and IADL tasks that require gripping / pinching / use of both hands. Therapeutic Exercise Minutes (minutes) 8 Other Interventions Reel Fed Printer on the RUE is 39# Reel Fed Printer on the LUE is 34# Average microstrategy architect developer for age and gender on the RUE is 49.6# and on the LUE is 41.5#. Average lateral pinch strength for age and gender on the RUE is 14.5# and the LUE is 13.8# . Lateral pinch on the RUE is 17 # Lateral pinch on the LUE is 12# Assessment Pt presents for continuation of lymphedema surveillance program. Following her mastectomy with SLN biopsy (1), pt will be at risk for lymphedema in her LUE / upper quadrant due to LN removal. Current measurements were compared to initial measurements and do not pose concern for lymphedema. Pt is reporting deficits in microstrategy architect developer and pinch strength which have made it difficult to complete ADLs such as opening containers, fastening fasteners, and picking up small items. Pt will benefit from continued skilled OT intervention for pt education, monitoring / surveillance in order to provide early detection / intervention to assure best positive outcomes with fewer lymphedema related complications if the need arises. Pt demonstrates good interest and motivation to be an active participant in her care. Pt asked multiple pertinent questions and received satisfactory answers. Pt has marketing underwriter's contact info and encouraged to reach out if questions or concerns arise. Problem List Limited Knowledge of Lymphedema Treatment/Condition /Precautions,Does Not Have a HEP Patient Goals Patient Goals 1. Pt will demonstrate a general understanding of the lymphatic system, s/s of lymphedema, treatment of lymphedema, implications of untreated lymphedema, s/s of infection and the correlation of infection related to lymphedema. 3 months 2. Pt will be compliant with quarterly assessments for lymphedema surveillance in order to obtain early intervention with best outcomes if needed. 12 months 11/15/22 New Goal: 3. Pt will demonstrate improved microstrategy architect developer strength in RUE by at least 5# and the LUE by at least 4# in order to improve independence with opening containers and using fasteners, and picking up small items such as pills and coins. 3 months. Treatment Plan Treatment Plan Evaluation,Edema Control, Manual Therapy,Therapeutic Exercise,Therapeutic Activities Expected Frequency 1x q 3 mo Expected Duration 12 mo Treatment Minutes Timed Treatment Minutes 28 Total Timed Treatment Minutes 28 Occupational Therapy Billing Units Billing Units Self Care/Home Management 1 Therapeutic Exercise 1 Certification Certification I Certify That: Therapy Services Provided, Therapy Plan Established, Therapy Plan Reviewed Recertification Information Recertification Information Initial Certification Date 03/03/22 Recertification Start Date 11/15/22 Recertification Due Date 02/13/23 Reasons to Continue Skilled Therapy Pt is participating in a lymphedema surveillance program and will benefit from continued surveillance through 12 months post op to provide early intervention and treatment in the event that she develops lymphedema in order to achieve best outcomes as well as continued pt education on risk reduction practices. Rehabilitation Potential Good Provider Signature Shows Agreement With POC & Medical Necessity Physician Comment/Change Comment or Changes Physician NPI Number #
== END 2023-01-25 11:51 | disposition home or self-care (01) ==
PROVIDERS: PCP Physician Assistant Medical; Visit Provider Surgery
DX: C50.912 Malignant neoplasm of unspecified site of left female breast (principal); Z51.89 Encounter for other specified aftercare
CPT/HCPCS: 97110; 97140; 97162; 97165; 97535; X5282

== ENCOUNTER 2023-02-24 08:55 | Outpatient (CLI) | payer MEDICARE, BC, SELFPAY | END 2023-02-24 08:56 | disposition home or self-care (01) | LOC: NFLDREF 02-27 08:07 | PROVIDERS: PCP Physician Assistant Medical; Referring Provider Physician Assistant Medical; Visit Provider Internal Medicine Nephrology | DX: E78.5 Hyperlipidemia, unspecified (principal); I10 Essential (primary) hypertension; N18.30 Chronic kidney disease, stage 3 unspecified; R79.89 Other specified abnormal findings of blood chemistry | CPT/HCPCS: 80069; 82043; 82570; 82728; 83540; 83550; 84450; 84460; 86140 ==

== ENCOUNTER 2023-04-20 10:18 | Outpatient (REF) | payer MEDICARE, BC, SELFPAY | END 2023-04-20 10:19 | disposition home or self-care (01) | LOC: NFLDREF 10:18 | PROVIDERS: PCP Physician Assistant Medical; Referring Provider Physician Assistant Medical; Visit Provider Physician Assistant Medical | DX: E78.5 Hyperlipidemia, unspecified (principal) | CPT/HCPCS: 80061 ==

== ENCOUNTER 2023-07-03 09:50 | Outpatient (RCR) | payer MEDICARE, BC, SELFPAY ==
[2023-04-06 10:53] LABS: Albumin* 4.6 g/dL (3.3-5.0)
[2023-04-06 10:56] LABS: Bilirubin Direct* 0.3 mg/dL (0.0-0.5); Bilirubin Total* 1.6 mg/dL (0.1-1.5)
[2023-04-06 10:57] LABS: Alanine Aminotransferase* 23 U/L (4-35); Alkaline Phosphatase* 100 U/L (40-150); Aspartate Amino Transferase* 30 U/L (12-35)
--- NOTE | 2023-04-11 10:28 | ONC.NURNOTE ---
Pt called to update her family medical history noting her sister was diagnosed with breast cancer this week. Also reviewed pt's pathology so she can share with her sister's oncology team as needed.
== END 2023-10-03 23:59 | disposition home or self-care (01) ==
LOC: CCIC 09:50
PROVIDERS: PCP Physician Assistant Medical; Visit Provider Physician Assistant
DX: C50.912 Malignant neoplasm of unspecified site of left female breast (principal); Z17.0 Estrogen receptor positive status [ER+]; M85.80 Other specified disorders of bone density and structure, unspecified site; N18.30 Chronic kidney disease, stage 3 unspecified; R05.3 Chronic cough
CPT/HCPCS: 36415; 80076; 99212; 99214; G0463

== ENCOUNTER 2023-08-23 08:55 | Outpatient (CLI) | payer MEDICARE, BC, SELFPAY | END 2023-08-23 08:56 | disposition home or self-care (01) | LOC: NFLDREF 08-25 05:45 | PROVIDERS: PCP Physician Assistant Medical; Referring Provider Physician Assistant Medical; Visit Provider Internal Medicine Nephrology | DX: E78.5 Hyperlipidemia, unspecified (principal); I12.9 Hypertensive chronic kidney disease with stage 1 through stage 4 chronic kidney disease, or unspecified chronic kidney disease; N18.31 Chronic kidney disease, stage 3a; R79.89 Other specified abnormal findings of blood chemistry | CPT/HCPCS: 80061; 80069; 82043; 82570; 82728; 83540; 83550; 84450; 84460; 84550; 86140 ==

== ENCOUNTER 2023-12-11 10:17 | Outpatient (CLI) | payer MEDICARE, BC, SELFPAY ==
--- NOTE | 2023-12-11 12:12 | W.ANESCHARGE ---
Anesthesia Charges Start Date/Time Anesthesia Start Date: 12/11/23 Anesthesia Start Time: 11:55 Stop Date/Time Anesthesia Stop Date: 12/11/23 Anesthesia Stop Time: 12:25 Summary Extremes of Age - Over 70 or under 1: MDA
--- NOTE | 2023-12-11 12:26 | P.ANES_ITS ---
Anesthesia Charges Start Date/Time Anesthesia Start Date: 12/11/23 Anesthesia Start Time: 11:55 Stop Date/Time Anesthesia Stop Date: 12/11/23 Anesthesia Stop Time: 12:25 Summary Extremes of Age - Over 70 or under 1: [employer]
== END 2023-12-11 10:18 | disposition home or self-care (01) ==
LOC: OP CLINIC 10:18
PROVIDERS: PCP Physician Assistant Medical; Visit Provider Internal Medicine
DX: Z86.010 Personal history of colon polyps (principal); K63.5 Polyp of colon; K64.8 Other hemorrhoids; K57.30 Diverticulosis of large intestine without perforation or abscess without bleeding
CPT/HCPCS: 00811; 00812; 45380; 88305; 99100; J2704

== ENCOUNTER 2024-01-02 08:50 | Outpatient (CLI) | payer MEDICARE, BC, SELFPAY ==
--- NOTE | 2024-01-02 09:15 | CRLHL7_ITS ---
For Patients: As a result of the Century Cures Act, medical imaging exams and procedure reports are released immediately into your electronic medical record. You may view this report before your referring provider. If you have questions, please contact your health care provider. BILATERAL SCREENING MAMMOGRAM WITH COMPUTER-AIDED DETECTION AND TOMOSYNTHESIS TECHNIQUE: CC and MLO views were obtained. These mammographic images have been obtained using full-field digital technique. These mammographic images were interpreted with the benefit of computer-aided detection. Breast Tomosynthesis was used in this interpretation. COMPARISON FILM: 12/28/22, 12/22/21, 12/18/20. FINDINGS: The breasts are heterogeneously dense, which may obscure small masses IMPRESSION: There is no radiographic evidence for malignancy. ASSESSMENT: BI-RADS Category 2: Benign RECOMMENDATION: Routine screening mammogram in 1 year. A lay language report of this examination will be provided to the patient. Lopez Ambrocio M.D. Diagnostic Radiologist [email or web address]/[email or web address] Transcribed: 2:52 p.gunnar hood/Dictated by: Lopez Ambrocio MD @ 01/02/2024 11:24:00 AM (Electronically Signed)
== END 2024-01-02 08:51 | disposition home or self-care (01) ==
LOC: MAMMO 08:50
PROVIDERS: PCP Physician Assistant Medical; Visit Provider Physician Assistant
DX: Z12.31 Encounter for screening mammogram for malignant neoplasm of breast (principal); R92.2 Inconclusive mammogram
CPT/HCPCS: 77063; 77067

== ENCOUNTER 2024-01-15 08:46 | Outpatient (RCR) | payer MEDICARE, BC, SELFPAY | END 2024-07-13 23:59 | disposition home or self-care (01) | LOC: CCIC 08:46 | PROVIDERS: PCP Physician Assistant Medical; Visit Provider Physician Assistant | DX: C50.912 Malignant neoplasm of unspecified site of left female breast (principal); Z17.0 Estrogen receptor positive status [ER+]; M85.852 Other specified disorders of bone density and structure, left thigh; R05.3 Chronic cough | CPT/HCPCS: 99214; G0463 ==

== ENCOUNTER 2024-02-26 09:00 | Outpatient (CLI) | payer MEDICARE, BC, SELFPAY | END 2024-02-26 09:01 | disposition home or self-care (01) | LOC: NFLDREF 02-29 07:25 | PROVIDERS: PCP Physician Assistant Medical; Referring Provider Physician Assistant Medical; Visit Provider Internal Medicine Nephrology | DX: N18.30 Chronic kidney disease, stage 3 unspecified (principal); I10 Essential (primary) hypertension; R53.83 Other fatigue | CPT/HCPCS: 80061; 80069; 82043; 82570; 83970; 84450; 84460; 84550; 86140; 87086 ==

== ENCOUNTER 2024-06-05 11:19 | Outpatient (CLI) | payer MEDICARE, BC, SELFPAY | END 2024-06-05 11:20 | disposition home or self-care (01) | LOC: NFLDREF 06-08 02:29 | PROVIDERS: PCP Physician Assistant Medical; Referring Provider Physician Assistant Medical; Visit Provider Physician Assistant Medical | DX: E55.9 Vitamin D deficiency, unspecified (principal); M85.852 Other specified disorders of bone density and structure, left thigh; R53.83 Other fatigue; Z13.0 Encounter for screening for diseases of the blood and blood-forming organs and certain disorders involving the immune mechanism; Z13.29 Encounter for screening for other suspected endocrine disorder; Z13.21 Encounter for screening for nutritional disorder | CPT/HCPCS: 82306; 82607; 82728; 84443 ==

== ENCOUNTER 2024-06-12 09:33 | Outpatient (CLI) | payer MEDICARE, BC, SELFPAY ==
--- NOTE | 2024-06-12 10:00 | CRLHL7_ITS ---
For Patients: As a result of the Century Cures Act, medical imaging exams and procedure reports are released immediately into your electronic medical record. You may view this report before your referring provider. If you have questions, please contact your health care provider. INDICATION: Chronic cough. History of breast cancer. TECHNIQUE: CT chest without contrast. COMPARISON: None. FINDINGS: Lungs and pleura: Bibasilar scarring/atelectasis most prominent within the right middle lobe and lingula. There is a right middle lobe solid nodule measuring 4 mm (series 3, image 52). Additional right middle lobe nodule measuring 3 mm (image 44). No consolidation. No pleural effusion or pneumothorax. Heart and vasculature: No cardiomegaly or pericardial effusion. There are coronary artery calcifications as well as atherosclerotic calcifications of the aorta. No thoracic aortic aneurysm. Main pulmonary artery normal in caliber. Lymph nodes/mediastinum: Patent airways. No suspicious lymphadenopathy. Chest wall: No suspicious chest wall mass or fluid collection. Upper abdomen: No acute abnormality. Bones: No acute or suspicious abnormality. IMPRESSION: 1. No acute intrathoracic pathology appreciated. 2. Scattered solid pulmonary nodules with largest measuring up to 4 mm. While these may be benign, given history of breast cancer recommend comparison with prior cross-sectional imaging of the chest, if available, to assess for stability. Otherwise short-term interval follow-up CT chest recommended to assess for interval change. 3. Coronary artery calcifications. Please note that all CT scans at this facility use dose modulation, iterative reconstruction, and/or weight-based dosing when appropriate to reduce radiation dose to as low as reasonably achievable. Dictated by Lakhwinder Trent MD @ 06/12/2024 4:16:18 PM (Electronically Signed)
== END 2024-06-12 09:34 | disposition home or self-care (01) ==
LOC: CT 09:34
PROVIDERS: PCP Physician Assistant Medical; Visit Provider Physician Assistant Medical
DX: R05.3 Chronic cough (principal); R91.8 Other nonspecific abnormal finding of lung field; I25.10 Atherosclerotic heart disease of native coronary artery without angina pectoris; Z85.3 Personal history of malignant neoplasm of breast
CPT/HCPCS: 71250

== ENCOUNTER 2024-07-31 12:27 | Outpatient (RCR) | payer MEDICARE, BC, SELFPAY | END 2025-01-27 23:59 | disposition home or self-care (01) | LOC: CCIC 12:27 | PROVIDERS: PCP Physician Assistant Medical; Visit Provider Internal Medicine Hematology & Oncology | DX: C50.912 Malignant neoplasm of unspecified site of left female breast (principal); Z17.0 Estrogen receptor positive status [ER+]; M85.852 Other specified disorders of bone density and structure, left thigh; M25.511 Pain in right shoulder; L91.8 Other hypertrophic disorders of the skin | CPT/HCPCS: 99213; G0463 ==

== ENCOUNTER 2024-09-02 09:51 | Outpatient (CLI) | payer MEDICARE, BC, SELFPAY ==
--- NOTE | 2024-09-02 10:00 | CRLHL7_ITS ---
For Patients: As a result of the Century Cures Act, medical imaging exams and procedure reports are released immediately into your electronic medical record. You may view this report before your referring provider. If you have questions, please contact your health care provider. Indication: Pulmonary nodule Technique: Noncontrast CT chest Please note that all CT scans at this facility use dose modulation, iterative reconstruction, and/or weight-based dosing when appropriate to reduce radiation dose to as low as reasonably achievable. Comparison: 06/12/2024 Findings: Small pulmonary nodules in the right lung again noted measuring up to 4 millimeters. Stable subpleural nodule in the left lung apex. No pleural effusion or pulmonary edema. No infiltrate or pneumothorax. Tiny nodule within the left lower lobe is also unchanged. No adenopathy. Vascular calcifications. Simple cyst in the liver is unchanged. No adrenal nodule. No fracture. Impression: Stable small right pulmonary nodules. Follow-up in 1 year suggested. Please note that all CT scans at this facility use dose modulation, iterative reconstruction, and/or weight-based dosing when appropriate to reduce radiation dose to as low as reasonably achievable. Dictated by Lopez Ambrocio MD @ 09/02/2024 11:36:22 AM (Electronically Signed)
== END 2024-09-02 09:52 | disposition home or self-care (01) ==
LOC: CT 09:52
PROVIDERS: PCP Physician Assistant Medical; Visit Provider Physician Assistant Medical
DX: R91.1 Solitary pulmonary nodule (principal)
CPT/HCPCS: 71250

== ENCOUNTER 2025-01-02 13:07 | Outpatient (CLI) | payer MEDICARE, BC, SELFPAY ==
--- NOTE | 2025-01-02 13:30 | CRLHL7_ITS ---
For Patients: As a result of the Century Cures Act, medical imaging exams and procedure reports are released immediately into your electronic medical record. You may view this report before your referring provider. If you have questions, please contact your health care provider. XR DXA BONE MINERAL DENSITY (BMD) Current height (in): 62.0. Weight (lb): 160.0. Menopause age: 50. Ethnicity: White. Reason for exam: Asymptomatic menopausal state. 1. Have you had a previous hip or vertebral fracture? No. 2. Have you had any fractures during your adult life which did not result from significant trauma (e.g., auto accident)? No. 3. Did either of your parents have a hip fracture? No. 4. Do you smoke? No. 5. Have you ever taken Glucocorticoids? No. 6. Do you have rheumatoid arthritis? No. 7. Do you have secondary osteoporosis? No. 8. Do you drink 3 or more alcoholic drinks per day? No. 9. Are you being treated for osteoporosis? No. 10. Have you ever taken any of the following medications: Actonel, Evista, Fosamax, Miacalcin, Reclast, Boniva, Forteo, HRT (i.e. estrogen/hormone therapy), Protelos, Prolia, Vitamin D, Calcium, other ??? please specify. ANSWER: Yes, vitamin D, calcium. 11. Do you have any of the following medical conditions: Anorexia or bulimia, asthma or emphysema, end stage renal disease, hyperparathyroidism, any seizure disorders, cancer, inflammatory bowel diseases, hysterectomy, other ??? please specify. ANSWER: Yes, breast cancer, hysterectomy. 12. What was your maximum height (inches)? 64. 13. Do you perform weight bearing exercise regularly? No. 14. Do you regularly consume dairy products? Yes. 15. Do you drink caffeinated beverages? No. 16. At what age did your period start? 11. 17. Are you premenopausal? No. 18. How many full-term pregnancies have you had? 0. 19. Have you ever missed your period for more than 6 months in a row (not including or menopause)? No. TECHNIQUE: Bone mineral density study was performed using the [employer]. FINDINGS: The results of the study expressed as bone mineral density (BMD) are as follows: Lumbar spine L1 to L4: BMD: 1.223 g/cm2. T-score: 1.6. Z-score: 4.1 Neck Left: BMD: 0.633 g/cm2. T-score: -1.9. Z-score: 0.2 Right: BMD: 0.735 g/cm2. T-score: -1.0. Z-score: 1.1 Total Left: BMD: 0.891 g/cm2. T-score: -0.4. Z-score: 1.5 Right: BMD: 0.935 g/cm2. T-score: -0.1. Z-score: 1.8 IMPRESSION: Osteopenia. *Comparison exams done prior to 09/2019 were performed on different unit, [facility]. COMPARISON: Compared with scan of 12/28/2022, the bone mineral density has decreased by 3.0 percent at the spine and decreased by 3.4 percent at the hip. FRAX 10-year Fracture Risk Major Osteoporotic Fracture: 13 percent Hip Fracture: 3.5 percent Reported Risk Factors: [place] () Neck BMD = 0.633, BMI = 29.3 Lopez Ambrocio M.D. Diagnostic Radiologist [email or web address] Transcribed: 3:37 pm DW/Dictated by: Lopez Ambrocio MD @ 01/02/2025 3:11:00 PM (Electronically Signed)
--- NOTE | 2025-01-02 14:00 | CRLHL7_ITS ---
For Patients: As a result of the Century Cures Act, medical imaging exams and procedure reports are released immediately into your electronic medical record. You may view this report before your referring provider. If you have questions, please contact your health care provider. INDICATION: BILATERAL SCREENING MAMMOGRAM, ASYMPTOMATIC 74 Y/O FEMALE COMPARISON: 01/02/2024, 12/28/2022. 01/27/2022 TECHNIQUE: Digital mammogram in CC and MLO projections including computer-aided detection (CAD) and tomosynthesis. BREAST COMPOSITION: There are scattered areas of fibroglandular density. FINDINGS: No suspicious findings. ASSESSMENT: BI-RADS 1 Negative RECOMMENDATION: Annual screening mammogram. A lay language report of this examination will be provided to the patient. Dictated by: Diamond Prasad MD @ 01/03/2025 08:22:41 (Electronically Signed)
== END 2025-01-02 13:08 | disposition home or self-care (01) ==
LOC: RAD 13:08
PROVIDERS: PCP Physician Assistant Medical; Visit Provider Physician Assistant Medical
DX: Z12.31 Encounter for screening mammogram for malignant neoplasm of breast (principal); Z78.0 Asymptomatic menopausal state; M85.89 Other specified disorders of bone density and structure, multiple sites
CPT/HCPCS: 77063; 77067; 77080